=== PATIENT | female | born 1990 | race Hispanic/Latino ===

== ENCOUNTER 2017-05-12 09:38 | Emergency (ER) | payer OTHER ==
[2017-05-12 10:41] LABS: BASO # 0.1 10^3/uL (0.0-0.2); BASO % 0.8 % (0.0-1.0); EOS # 0.1 10^3/uL (0.0-0.50); HEMATOCRIT 41.2 % (36.0-47.0); HEMOGLOBIN 14.1 g/dl (12.0-16.0); IMMATURE GRANULOCYTE % 0.2 % (0-3.0); LYMPH # 1.8 10^3/uL (1.5-6.5); LYMPH % 19.7 % (24.0-44.0); MEAN CORPUSCULAR HEMOGLOBIN 28.3 pg (27.0-33.0); MEAN CORPUSCULAR HGB CONC 34.2 g/dl (32.0-36.5); MEAN CORPUSCULAR VOLUME 82.7 fl (80.0-96.0); MONO # 0.5 10^3/uL (0.0-0.8); MONO % 5.4 % (0.0-5.0); NEUTROPHILS # 6.8 10^3/uL (1.8-7.7); NEUTROPHILS % 72.9 % (36.0-66.0); PLATELET COUNT, AUTOMATED 392 10^3/uL (150-450); RED BLOOD COUNT 4.98 10^6/uL (4.00-5.40); RED CELL DISTRIBUTION WIDTH 12.1 % (11.5-14.5); WHITE BLOOD COUNT 9.3 10^3/uL (4.0-10.0)
[2017-05-12 10:46] LABS: APPEARANCE, URINE HAZY (CLEAR); BACTERIA, URINE AUTO 1+ (NEGATIVE); BILIRUBIN, URINE AUTO NEGATIVE (NEGATIVE); BLOOD, URINE BLOOD NEGATIVE (NEGATIVE); COLOR, URINE YELLOW (YELLOW); GLUCOSE, URINE (UA) AUTO NEGATIVE (NEGATIVE); KETONE, URINE AUTO NEGATIVE (NEGATIVE); LEUKOCYTE ESTERASE, URINE AUTO 3+ (NEGATIVE); NITRITE, URINE AUTO NEGATIVE (NEGATIVE); PROTEIN, URINE AUTO NEGATIVE (NEGATIVE); RBC, URINE AUTO 8 /HPF (0-3); SPECIFIC GRAVITY URINE AUTO 1.006 (1.002-1.035); SQUAMOUS EPITHELIAL CELL UR AU 9 /HPF (0-6); UROBILINOGEN, URINE AUTO 0.2 mg/dL (0.0-2.0); WBC, URINE AUTO 6 /HPF (0-3)
[2017-05-12] MEDS: ONDANSETRON 4MG/2ML VIAL (J2405) IV (11:01)
[2017-05-12] MEDS: KETOROLAC 30 MG/ML VIAL (J1885) IV (11:01)
[2017-05-12] MEDS: NS 1,000 ML IV (11:01)
[2017-05-12 11:03] LABS: ALBUMIN 4.2 GM/DL (3.2-5.2); ALBUMIN/GLOBULIN RATIO 1.17 (1.00-1.93); ALKALINE PHOSPHATASE 77 U/L (45-117); ALT/SGPT 13 U/L (12-78); ANION GAP 11 MEQ/L (8-16); AST/SGOT 17 U/L (7-37); BILIRUBIN,TOTAL 0.6 MG/DL (0.2-1.0); BLOOD UREA NITROGEN 9 MG/DL (7-18); CALCIUM LEVEL 9.7 MG/DL (8.5-10.1); CARBON DIOXIDE LEVEL 23 MEQ/L (21-32); CHLORIDE LEVEL 107 MEQ/L (98-107); GLOMERULAR FILTRATION RATE > 60.0 (>60); GLUCOSE, FASTING 88 MG/DL (70-100); POTASSIUM SERUM 3.9 MEQ/L (3.5-5.1); SODIUM LEVEL 141 MEQ/L (136-145); TOTAL PROTEIN 7.8 GM/DL (6.4-8.2)
[2017-05-12] MEDS: PANTOPRAZOLE 40MG INJ (PROTONIX) (C9113) IV (12:12)
== END 2017-05-12 13:16 | disposition home or self-care (01) ==
LOC: M ED 09:38
DX: D27.0 Benign neoplasm of right ovary (principal); K21.9 Gastro-esophageal reflux disease without esophagitis; Z88.0 Allergy status to penicillin
CPT/HCPCS: C9113

== ENCOUNTER 2017-05-14 13:23 | Observation (INO) | payer OTHER ==
[2017-05-14] MEDS: LIDOCAINE 1% MDV 20ML VIAL SQ (14:00)
[2017-05-14] MEDS: LR 1,000 ML IV ×3 (14:01→20:00)
[2017-05-14 14:07] LABS: HEMATOCRIT 39.8 % (36.0-47.0); HEMOGLOBIN 13.5 g/dl (12.0-16.0)
[2017-05-14 14:14] LABS: CONTROL LINE HCG INT CTR LINE PRESENT; HCG, SERUM QUALITATIVE NEGATIVE (NEGATIVE)
[2017-05-14 14:30] LABS: LDH LACTATE DEHYDROGENASE 161 U/L (84-246)
[2017-05-14] MEDS: METOCLOPRAMIDE INJ 10MG/2ML VIAL (J2765) IV (16:29)
[2017-05-14] MEDS: GENTAMICIN 100 MG in APPROPRIATE DILUENT 1 EA IV (17:06)
[2017-05-14] MEDS ORDERED: PROPOFOL 200 MG/20 ML VIAL As Ordered (17:55)
[2017-05-14] MEDS ORDERED: ROCURONIUM BROMIDE 50 MG/5 ML VIAL As Ordered (17:55)
[2017-05-14] MEDS ORDERED: fentaNYL 250 MCG/5 ML INJECTION (J3010) As Ordered (17:55)
[2017-05-14] MEDS ORDERED: LIDOCAINE 2% INJ 100 MG/5 ML SDV (FOR ANES.) As Ordered (17:55)
[2017-05-14] MEDS ORDERED: MIDAZOLAM INJ 2 MG/2 ML VIAL (J2250) As Ordered (17:56)
[2017-05-14] MEDS: CLINDAMYCIN 900 MG in APPROPRIATE DILUENT 1 EA IV (18:16)
[2017-05-14] MEDS ORDERED: KETOROLAC 60 MG/2 ML VIAL (J1885) As Ordered (18:51)
[2017-05-14] MEDS ORDERED: dexameTHASONE 4 MG/ML 1ML VIAL (J1100) As Ordered ×2 (18:51)
[2017-05-14] MEDS ORDERED: diphenhydrAMINE INJ 50MG/ML VIAL (J1200) As Ordered (18:51)
[2017-05-14] MEDS ORDERED: GLYCOPYRROLATE INJ 0.2 MG/ML 2 ML VIAL As Ordered (18:52)
[2017-05-14] MEDS ORDERED: NEOSTIGMINE 10 MG/10 ML VIAL (J2710) As Ordered (18:52)
[2017-05-14] MEDS ORDERED: ONDANSETRON 4MG/2ML VIAL (J2405) As Ordered (18:52)
[2017-05-14] MEDS ORDERED: HYDROmorphone HCL 2 MG/ML 1ML VIAL (J1170) As Ordered (19:03)
[2017-05-14] MEDS: BUPIVACAINE HCL 0.25% 30 ML VIAL As Ordered (19:29)
[2017-05-14] MEDS ORDERED: ONDANSETRON 4MG/2ML VIAL (J2405) IV ×2 (19:45→20:00)
[2017-05-14] MEDS ORDERED: PERCOCET 5MG/325MG TAB PO (19:45)
[2017-05-14] MEDS ORDERED: HYDROmorphone HCL 1 MG/ML SYRINGE (J1170) IV (20:00)
[2017-05-14] MEDS ORDERED: fentaNYL 100 MCG/2 ML INJECTION (J3010) IV (20:00)
[2017-05-14] MEDS ORDERED: MEPERIDINE INJ 25 MG/ML VIAL (J2175) As Ordered (20:11)
[2017-05-14] MEDS: MEPERIDINE INJ 25 MG/ML VIAL (J2175) IV ×2 (20:19→20:24)
[2017-05-14] MEDS: PERCOCET 5MG/325MG TAB PO (20:28)
[2017-05-14] MEDS: DOCUSATE SODIUM 100 MG CAP PO (22:47)
[2017-05-15] MEDS: PERCOCET 5MG/325MG TAB PO ×2 (00:49→07:15)
[2017-05-15] MEDS: LR 1,000 ML IV (03:45)
[2017-05-15] MEDS: KETOROLAC 30 MG/ML VIAL (J1885) IV (04:29)
[2017-05-15] MEDS: DOCUSATE SODIUM 100 MG CAP PO (08:56)
[2017-05-15 10:39] LABS: ALPHA FETOPROTEIN TUMOR QUANT < 1.3 NG/ML (<8.1)
[2017-05-16 09:38] LABS: CARCINOEMBRYONIC ANTIGEN 0.5 NG/ML (<2.5)
[2017-05-16 10:07] LABS: CA19-9 TUMOR MARKER,CARBOHYDRA 339.1 U/ML (<35.0)
[2017-05-16 10:07] LABS: CA 125 20.1 U/ML (<30.2)
== END 2017-05-15 13:05 | disposition home or self-care (01) ==
LOC: M SDC 13:23 → M OR 19:39 → M PED 05-15 13:05
PROVIDERS: Obstetrics & Gynecology
DX: D27.0 Benign neoplasm of right ovary (principal); R10.2 Pelvic and perineal pain; K21.9 Gastro-esophageal reflux disease without esophagitis; Z79.899 Other long term (current) drug therapy; Z88.0 Allergy status to penicillin
CPT/HCPCS: 58940

== ENCOUNTER 2017-05-22 11:36 | Emergency (ER) | payer OTHER ==
[2017-05-22] MEDS: NS 1,000 ML IV (12:45)
[2017-05-22 13:05] LABS: HEMATOCRIT 41.1 % (36.0-47.0); HEMOGLOBIN 13.9 g/dl (12.0-15.5); MEAN CORPUSCULAR HEMOGLOBIN 28.5 pg (27.0-33.0); MEAN CORPUSCULAR HGB CONC 33.8 g/dl (32.0-36.5); MEAN CORPUSCULAR VOLUME 84.4 fl (80.0-96.0); PLATELET COUNT, AUTOMATED 434 10^3/uL (150-450); RED BLOOD COUNT 4.87 10^6/uL (4.00-5.40); WHITE BLOOD COUNT 7.7 10^3/uL (4.0-10.0)
[2017-05-22 13:13] LABS: KETONE, URINE AUTO RFX NEGATIVE (NEGATIVE); NITRITE, URINE AUTO RFX NEGATIVE (NEGATIVE); RBC, URINE AUTO RFX 1 /HPF (0-3); SPECIFIC GRAVITY UR AUTO RFX 1.003 (1.002-1.035); SQUAM EPITHELIAL CELL UR AURFX 3 /HPF (0-6); WBC, URINE AUTO RFX 7 /HPF (0-3)
[2017-05-22 13:17] LABS: LEUKOCYTE ESTERASE UR AUTO RFX 3+ (NEGATIVE)
[2017-05-22 13:19] LABS: CONTROL LINE HCG INT CTR LINE PRESENT; HCG, SERUM QUALITATIVE NEGATIVE (NEGATIVE)
[2017-05-22 13:24] LABS: ANION GAP 9 MEQ/L (8-16); BLOOD UREA NITROGEN 12 MG/DL (7-18); CARBON DIOXIDE LEVEL 25 MEQ/L (21-32); CHLORIDE LEVEL 106 MEQ/L (98-107); CREATININE FOR GFR 0.75 MG/DL (0.55-1.30); GLOMERULAR FILTRATION RATE > 60.0 (>60); GLUCOSE, FASTING 86 MG/DL (70-100); POTASSIUM SERUM 4.2 MEQ/L (3.5-5.1); SODIUM LEVEL 140 MEQ/L (136-145)
[2017-05-22] MEDS ORDERED: ISOVUE-370 76% 100ML VIAL (Q9967) As Ordered (13:41)
[2017-05-22] MEDS: KETOROLAC 30 MG/ML VIAL (J1885) IV (14:30)
== END 2017-05-22 14:57 | disposition home or self-care (01) ==
LOC: M ED 11:36
DX: R07.89 Other chest pain (principal); Z79.899 Other long term (current) drug therapy; Z88.0 Allergy status to penicillin
CPT/HCPCS: Q9967

== ENCOUNTER → 2017-09-04 | Outpatient (REF) | payer OTHER | LOC: M SFHCLERA 15:00 | DX: R11.0 Nausea (principal) ==

== ENCOUNTER 2018-03-27 10:49 | Emergency (ER) | payer OTHER ==
[~2018-03-27] VITALS: Ht 162.6 cm; Wt 63.6 kg
[~2018-03-27 10:49] MED LIST: ALKATAB PO; COLA100C5 PO; IBUP-1022 PO; IBUP-1114 PO; KETO10TAB PO; MICR1TAB16 PO; OXYC1TAB23 PO
[2018-03-27] MEDS ORDERED: KETOROLAC 60 MG/2 ML VIAL (J1885) IM ONE (11:30)
[2018-03-27 11:40] LABS: BASO # 0.1 10^3/uL (0.0-0.2); EOS # 0.2 10^3/uL (0.0-0.50); EOS % 2.6 % (0.0-3.0); HEMATOCRIT 41.6 % (36.0-47.0); HEMOGLOBIN 14.1 g/dl (12.0-15.5); LYMPH % 27.4 % (24.0-44.0); MEAN CORPUSCULAR HGB CONC 33.9 g/dl (32.0-36.5); MEAN CORPUSCULAR VOLUME 85.4 fl (80.0-96.0); MONO # 0.5 10^3/uL (0.0-0.8); MONO % 6.1 % (0.0-5.0); NEUTROPHILS # 4.6 10^3/uL (1.8-7.7); NEUTROPHILS % 62.8 % (36.0-66.0); PLATELET COUNT, AUTOMATED 379 10^3/uL (150-450); RED BLOOD COUNT 4.87 10^6/uL (4.00-5.40); WHITE BLOOD COUNT 7.4 10^3/uL (4.0-10.0)
--- NOTE | 2018-03-27 11:46 | REP ---
Clinical: Left sided headache . Comparison: None . Findings: The ventricles, sulci, and cisterns are normal in position and appearance. Deshpande-white differentiation is maintained. No acute intracranial hemorrhage, mass/mass effect, pathology or trauma/injury. No evidence for acute infarction. No extra-axial fluid collection. Calvarium is intact. Paranasal sinuses and mastoid air cells are clear. Impression: Normal noncontrast head CT. No evidence for acute intracranial pathology or trauma/injury. Electronically Signed by Mando Herring MD 03/27/2018 11:38 A
[2018-03-27 12:26] LABS: FOLATE 22.7 NG/ML (>5.4)
[2018-03-27 13:05] VITALS: BP 101/58
== END 2018-03-27 13:08 | disposition home or self-care (01) ==
LOC: M ED 10:49
DX: R51 Headache (principal); K21.9 Gastro-esophageal reflux disease without esophagitis; J30.1 Allergic rhinitis due to pollen; Z87.42 Personal history of other diseases of the female genital tract; Z79.3 Long term (current) use of hormonal contraceptives; Z87.828 Personal history of other (healed) physical injury and trauma

== ENCOUNTER 2018-04-06 20:02 | Emergency (ER) | payer OTHER ==
[~2018-04-06] VITALS: Ht 162.6 cm; Wt 63.6 kg
[2018-04-06 21:08] LABS: BASO # 0.1 10^3/uL (0.0-0.2); BASO % 0.9 % (0.0-1.0); EOS # 0.2 10^3/uL (0.0-0.50); EOS % 3.3 % (0.0-3.0); HEMATOCRIT 36.5 % (36.0-47.0); HEMOGLOBIN 12.5 g/dl (12.0-15.5); LYMPH # 2.4 10^3/uL (1.5-6.5); LYMPH % 36.8 % (24.0-44.0); MEAN CORPUSCULAR HGB CONC 34.2 g/dl (32.0-36.5); MEAN CORPUSCULAR VOLUME 84.7 fl (80.0-96.0); MONO # 0.4 10^3/uL (0.0-0.8); MONO % 6.5 % (0.0-5.0); NEUTROPHILS # 3.4 10^3/uL (1.8-7.7); NEUTROPHILS % 52.2 % (36.0-66.0); PLATELET COUNT, AUTOMATED 323 10^3/uL (150-450); RED BLOOD COUNT 4.31 10^6/uL (4.00-5.40); WHITE BLOOD COUNT 6.4 10^3/uL (4.0-10.0)
[2018-04-06 21:26] LABS: INR 1.01; PARTIAL THROMBOPLASTIN TIME 27.3 SECONDS (25.4-37.6); PROTHROMBIN TIME 13.4 SECONDS (12.1-14.4)
[2018-04-06 21:47] LABS: HCG, SERUM QUALITATIVE NEGATIVE (NEGATIVE)
[2018-04-06 22:46] LABS: ALBUMIN 3.6 GM/DL (3.2-5.2); ALT/SGPT 16 U/L (12-78); BILIRUBIN,DIRECT 0.1 MG/DL (0.0-0.2); BILIRUBIN,TOTAL 0.6 MG/DL (0.2-1.0); BLOOD UREA NITROGEN 15 MG/DL (7-18); CALCIUM LEVEL 8.8 MG/DL (8.5-10.1); CARBON DIOXIDE LEVEL 20 MEQ/L (21-32); CHLORIDE LEVEL 109 MEQ/L (98-107); CPK CREATINE PHOSPHOKINASE 176 U/L (26-192); CREATININE FOR GFR 0.81 MG/DL (0.55-1.30); FREE T4 1.02 NG/DL (0.76-1.46); GLOMERULAR FILTRATION RATE > 60.0 (>60); GLUCOSE, FASTING 90 MG/DL (70-100); LIPASE 324 U/L (73-393); MAGNESIUM LEVEL 1.9 MG/DL (1.8-2.4); MB/CK RELATIVE INDEX 0.68 (< OR =4); PHOSPHORUS LEVEL 2.2 MG/DL (2.5-4.9); POTASSIUM SERUM 3.6 MEQ/L (3.5-5.1); SODIUM LEVEL 141 MEQ/L (136-145); TOTAL PROTEIN 7.1 GM/DL (6.4-8.2); TROPONIN I < 0.02 NG/ML (< 0.10)
[2018-04-06] MEDS ORDERED: NEUTRA-PHOS 1.25 GM PACKET PO ONE (23:00)
[2018-04-06] MEDS ORDERED: ISOVUE-370 76% 100ML VIAL (Q9967) As Ordered ONE (23:23)
--- NOTE | 2018-04-06 23:52 | REPVR ---
EXAM: CT Angiography Chest With Contrast EXAM DATE/TIME: 04/06/2018 10:48 PM CLINICAL HISTORY: 27 years old, female; Pain; Chest pain; Type not specified; Additional info: Chest pain, SOB TECHNIQUE: Axial computed tomographic angiography images of the chest with intravenous contrast using CT angiography protocol. All CT scans at this facility use at least one of these dose optimization techniques: automated exposure control; mA and/or kV adjustment per patient size (includes targeted exams where dose is matched to clinical indication); or iterative reconstruction. Coronal and sagittal reformatted images were created and reviewed. MIP reconstructed images were created and reviewed. CONTRAST: 75 ml of iso administered intravenously. COMPARISON: CT ANGIO CHEST 05/22/2017 1:46 PM FINDINGS: Pulmonary arteries: Normal. No pulmonary emboli. Aorta: Normal. No aortic aneurysm. No aortic dissection. Lungs: Normal. No consolidation. No masses. Pleural space: Normal. No pneumothorax. No pleural effusion. Heart: Normal. No cardiomegaly. No pericardial effusion. Lymph nodes: Unremarkable. No enlarged lymph nodes. Bones/joints: Unremarkable. No acute fracture. Soft tissues: Unremarkable. IMPRESSION: No acute findings. Electronically signed by: Khoi Matos On 04/06/2018 23:52:00 PM
[2018-04-07 00:44] VITALS: BP 110/66
--- NOTE | 2018-04-07 19:02 | ECGEPIP ---
Stationary ECG Study [facility] - ED Test Date: 2018-04-06 Pat Name: NITA ESCALANTE Department: Room: - Gender: F Senior Budget Analyst: mitch : 1990 Requested By: WERO Carranza Order Number: [id number] Reading MD: Chio Babin Measurements Intervals [place] Rate: 59 P: 19 SC: 133 QRS: 75 QRSD: 86 T: 49 QT: 418 QTc: 415 Interpretive Statements SINUS BRADYCARDIA ARTIFACT Electronically Signed On 04-07-2018 19:01:56 EST by Chio Babin
--- NOTE | 2018-04-07 19:04 | ECGEPIP ---
Stationary ECG Study [facility] - ED Test Date: 2018-04-07 Pat Name: NITA ESCALANTE Department: Room: - Gender: F Control Room Operator: af : 1990 Requested By: WERO Carranza Order Number: [id number] Reading MD: Chio Babin Measurements Intervals [place] Rate: 61 P: 27 ND: 136 QRS: 76 QRSD: 86 T: 39 QT: 397 QTc: 401 Interpretive Statements SINUS RHYTHM SIMILAR 04/06/18 20:59 Electronically Signed On 04-07-2018 19:04:49 EST by Chio Babin
== END 2018-04-07 00:45 | disposition home or self-care (01) ==
LOC: M ED 20:02
DX: R06.02 Shortness of breath (principal); E83.39 Other disorders of phosphorus metabolism; R20.2 Paresthesia of skin; R51 Headache; Z88.0 Allergy status to penicillin
CPT/HCPCS: 36415; 71275; 80048; 80076; 82550; 82553; 83690; 83735; 84100; 84439; 84443; 84484; 84703; 85025; 85610; 85730; 93005; 93041; 94760; 99285; Q9967

== ENCOUNTER → 2018-04-16 | Outpatient (REF) | payer OTHER ==
[2018-04-16 13:44] LABS: BASO # 0.1 10^3/uL (0.0-0.2); BASO % 0.9 % (0.0-1.0); EOS # 0.1 10^3/uL (0.0-0.50); EOS % 2.7 % (0.0-3.0); HEMATOCRIT 40.4 % (36.0-47.0); HEMOGLOBIN 13.3 g/dl (12.0-15.5); LYMPH # 1.6 10^3/uL (1.5-6.5); LYMPH % 30.7 % (24.0-44.0); MEAN CORPUSCULAR HEMOGLOBIN 28.9 pg (27.0-33.0); MEAN CORPUSCULAR HGB CONC 32.9 g/dl (32.0-36.5); MEAN CORPUSCULAR VOLUME 87.8 fl (80.0-96.0); MONO # 0.3 10^3/uL (0.0-0.8); MONO % 4.7 % (0.0-5.0); NEUTROPHILS # 3.2 10^3/uL (1.8-7.7); NEUTROPHILS % 60.8 % (36.0-66.0); PLATELET COUNT, AUTOMATED 253 10^3/uL (150-450); WHITE BLOOD COUNT 5.3 10^3/uL (4.0-10.0)
[2018-04-16 13:56] LABS: ALT/SGPT 17 U/L (12-78); BILIRUBIN,TOTAL 0.6 MG/DL (0.2-1.0); BLOOD UREA NITROGEN 11 MG/DL (7-18); CALCIUM LEVEL 8.9 MG/DL (8.5-10.1); CARBON DIOXIDE LEVEL 28 MEQ/L (21-32); CHLORIDE LEVEL 106 MEQ/L (98-107); CREATININE FOR GFR 0.75 MG/DL (0.55-1.30); GLOMERULAR FILTRATION RATE > 60.0 (>60); GLUCOSE, FASTING 62 MG/DL (70-100); RHEUMATOID FACTOR QUANT < 10.0 IU/ML (<15.0); SODIUM LEVEL 139 MEQ/L (136-145); TOTAL PROTEIN 7.6 GM/DL (6.4-8.2)
[2018-04-16 14:50] LABS: ERYTHROCYTE SEDIMENTATION RATE 11 mm/hr (0-20)
[2018-04-17 10:15] LABS: ANTINUCLEAR ANTIBODIES DIRECT Negative (Negative)
== END ==
LOC: M LABNEURO 13:15
PROVIDERS: ATTEND Psychiatry & Neurology Neurology
DX: R51 Headache (principal)

== ENCOUNTER → 2018-06-09 | Outpatient (REF) | payer OTHER ==
[2018-06-09 14:03] LABS: FREE T3 2.6 PG/ML (2.2-4.0); FREE T4 0.87 NG/DL (0.76-1.46); FREE THYROXINE INDEX 2.7 % (1.3-4.8); THYROXINE (T4) 10.1 UG/DL (4.5-12.0)
[2018-06-09 14:04] LABS: TOTAL T3 104.9 NG/DL (60.0-181.0)
== END ==
LOC: M LABNEURO 10:59
PROVIDERS: ATTEND Psychiatry & Neurology Neurology
DX: E07.9 Disorder of thyroid, unspecified (principal)